=== PATIENT | male | born 1995 | race American Indian/Alaskan Native ===

== ENCOUNTER 2021-04-28 22:33 | Emergency (ER) | payer SELFPAY ==
[2021-04-28] MEDS ORDERED: SODIUM CHLORIDE 0.9% 1000 ML 1,000 ML IV ONE (23:47)
[2021-04-28] MEDS ORDERED: MORPHINE 4 MG/1 ML INJ IV ONE (23:47)
[2021-04-28] MEDS ORDERED: ONDANSETRON 4 MG/2 ML INJ IV ONE (23:47)
[2021-04-28] MEDS ORDERED: FAMOTIDINE 20 MG/2 ML INJ IV ONE (23:48)
--- NOTE | 2021-04-28 23:56 | Emergency Department Report ---
HPI <NYDIAYEHUDA - Last Filed: 04/29/21 07:25> - HPI HPI: 25-year-old -G[place] male presents to the emergency department with a complaint of generalized abdominal pain, nausea with vomiting, and some recent hematemesis. Overall this has been going on for the past 24 to 36 hours. He has a past medical history of celiac disease and insulin-dependent diabetes. He has not taken anything for symptoms prior to presentation. No recent travel or sick contacts at home. He denies any fever, dysuria, diarrhea, constipation. He says that his abdominal pain is currently 10 out of 10 in intensity. No known aggravating or alleviating factors. <STEPHANIE AMATO - Last Filed: 04/29/21 20:33> - General Chief Complaint: Abdominal Pain Time Seen by Provider: 04/28/21 23:20 ED Past Medical Hx <NYDIAYEHUDA - Last Filed: 04/29/21 07:25> - Past Medical History Hx Diabetes: Yes Additional medical history: Celiac disease <STEPHANIE AMATO - Last Filed: 04/29/21 20:33> - Medications Home Medications: Home Medications Medication Instructions Recorded Confirmed Last Taken Type Ciprofloxacin HCl 500 mg PO BID #14 04/29/21 Unknown Rx Famotidine [Pepcid] 20 mg PO BID #20 tablet 04/29/21 Unknown Rx HYDROcodone/APAP 5-325 [[place] 1 each PO Q6HR PRN #12 tablet 04/29/21 Unknown Rx 5/325] Ondansetron [Zofran Odt] 4 mg PO Q8HR PRN #15 tab.rapdis 04/29/21 Unknown Rx ED Review of Systems ROS: Stated complaint: ABD PAIN Other details as noted in HPI <NYDIAYEHUDA - Last Filed: 04/29/21 07:25> ROS: Stated complaint: ABD PAIN Other details as noted in HPI Comment: All other systems reviewed and negative Constitutional: denies: chills, fever Cardiovascular: denies: chest pain, palpitations Gastrointestinal: abdominal pain, nausea, vomiting, hematemesis. denies: diarrhea, constipation Genitourinary: denies: dysuria, discharge Musculoskeletal: denies: back pain, arthralgia Skin: denies: rash, lesions Neurological: denies: headache, weakness <STEPHANIE AMATO - Last Filed: 04/29/21 20:33> Physical Exam - Physical Exam Vital Signs: Vital Signs 04/28/21 04/29/21 22:43 01:38 Temperature 98.1 F Pulse Rate 88 Respiratory 18 22 Rate Blood Pressure 150/92 [Right] O2 Sat by Pulse 100 Oximetry <YEHUDA STAFFORD - Last Filed: 04/29/21 07:25> - Physical Exam Vital Signs: Vital Signs 04/28/21 22:43 Temperature 98.1 F Pulse Rate 88 Respiratory 18 Rate Blood Pressure 150/92 [Right] O2 Sat by Pulse 100 Oximetry Physical Exam: GENERAL: The patient appears in some mild distress secondary to pain. HENT: Normocephalic. Atraumatic. Patient has moist mucous membranes. EYES: Extraocular motions are intact. NECK: Supple. Trachea is midline. CHEST/LUNGS: Clear to auscultation. There is no respiratory distress noted. HEART/CARDIOVASCULAR: Regular. There is no tachycardia. There is no murmur. ABDOMEN: Abdomen is soft. Generalized abdominal tenderness to palpation. Patient has normal bowel sounds. There is no abdominal distention. SKIN: Skin is warm and dry. NEURO: The patient is awake, alert, and oriented. The patient is cooperative. Normal speech. MUSCULOSKELETAL: There is no tenderness or deformity. There is no limitation range of motion. <STEPHANIE AMATO - Last Filed: 04/29/21 20:33> ED Course Vital Signs 04/28/21 04/29/21 22:43 01:38 Temperature 98.1 F Pulse Rate 88 Respiratory 18 22 Rate Blood Pressure 150/92 [Right] O2 Sat by Pulse 100 Oximetry <YEHUDA STAFFORD - Last Filed: 04/29/21 07:25> Vital Signs 04/28/21 22:43 Temperature 98.1 F Pulse Rate 88 Respiratory 18 Rate Blood Pressure 150/92 [Right] O2 Sat by Pulse 100 Oximetry <STEPHANIE AMATO - Last Filed: 04/29/21 20:33> ED Medical Decision Making - Lab Data Result diagrams: 04/28/21 23:54 04/28/21 23:54 - Medical Decision Making Patient stable vital signs with recurrence of vomiting. Discharged home. <YEHUDA STAFFORD - Last Filed: 04/29/21 07:25> - Lab Data Result diagrams: 04/28/21 23:54 04/28/21 23:54 Lab Results 04/28/21 04/28/21 Range/Units 23:54 23:54 WBC 10.6 (4.5-11.0) K/mm3 RBC 3.99 (3.65-5.03) M/mm3 Hgb 12.0 (11.8-15.2) gm/dl Hct 37.1 (35.5-45.6) % MCV 93 (84-94) fl MCH 30 (28-32) pg MCHC 32 (32-34) % RDW 13.7 (13.2-15.2) % Plt Count 408 (140-440) K/mm3 Lymph % (Auto) 14.1 (13.4-35.0) % [place] % (Auto) 7.2 (0.0-7.3) % Eos % (Auto) 0.1 (0.0-4.3) % Baso % (Auto) 0.2 (0.0-1.8) % Lymph # (Auto) 1.5 (1.2-5.4) K/mm3 [place] # (Auto) 0.8 (0.0-0.8) K/mm3 Eos # (Auto) 0.0 (0.0-0.4) K/mm3 Baso # (Auto) 0.0 (0.0-0.1) K/mm3 Seg Neutrophils % 78.4 H (40.0-70.0) % Seg Neutrophils # 8.3 H (1.8-7.7) K/mm3 Sodium 145 (137-145) mmol/L Potassium 4.4 (3.6-5.0) mmol/L Chloride 104.8 (98-107) mmol/L Carbon Dioxide 24 (22-30) mmol/L Anion Gap 21 mmol/L BUN 21 H (9-20) mg/dL Creatinine 1.1 (0.8-1.3) mg/dL Estimated GFR > 60 ml/min BUN/Creatinine Ratio 19 % Glucose 180 H (75-100) mg/dL Calcium 9.6 (8.4-10.2) mg/dL Total Bilirubin 0.20 (0.1-1.2) mg/dL Direct Bilirubin < 0.2 (0-0.2) mg/dL Indirect Bilirubin 0.0 mg/dL AST 36 (5-40) units/L ALT 30 (7-56) units/L Alkaline Phosphatase 122 (35-129) units/L Total Protein 8.1 (6.3-8.2) g/dL Albumin 4.7 (3.9-5) g/dL Albumin/Globulin Ratio 1.4 % Lipase 23 (13-60) units/L - Radiology Data Radiology results: report reviewed CT abdomen pelvis w con INDICATION / CLINICAL INFORMATION: "Generalized" abdominal pain with nausea and vomiting. TECHNIQUE: Axial CT imaging of abdomen and pelvis was obtained with 100 mL Omnipaque 300 IV contrast. Coronal and sagittal reformatted imaging obtained and reviewed. All CT scans at this location are performed using CT dose reduction for ALARA by means of automated exposure control. COMPARISON: None available. FINDINGS: CT abdomen with contrast demonstrates grossly normal appearance of the liver, spleen, pancreas, kidneys, and adrenal glands. Gallbladder is present. No biliary dilatation. There is prominent inflammatory change involving the majority of the colon, with sparing of the sigmoid and descending colon. The appearance is consistent with colitis. Small bowel is grossly unremarkable. Normal appendix is present in the right lower quadrant. There are a few small pulmonary opacities within the lower lobes bilaterally. These are nonspecific but certainly could be due to viral pneumonia and correlation with Covid status is recommended. No pleural effusion. No acute osseous abnormality is present. IMPRESSION: 1. Findings consistent with colitis involving the ascending colon and transverse colon. 2. Incidental finding of a few scattered pulmonary opacities within both lung bases. This could represent viral pneumonia and correlation with Covid status is recommended. - Medical Decision Making This patient presents to the emergency department with abdominal pain, nausea and vomiting. The patient is actively vomiting and there is some mild hematemesis seen most likely secondary to a [place]Han tear. He has generalized abdominal tenderness to palpation but the abdomen is soft and nondistended. Labs have been mostly unremarkable including CBC, metabolic panel, lipase. An IV was placed and the patient was given IV fluid resuscitation, IV analgesia and a dose of an antiemetic. CT shows that the patient has colitis. He has been given a dose of IV antibioti cs. Attempted an oral challenge but the patient subsequently began having increased abdominal pain and increased nausea with vomiting. I have ordered for the patient to have another liter of IV fluid, a dose of Reglan and a second dose of analgesia. This patient will be signed out to my colleague to reevaluate and assist with disposition. <STEPHANIE AMATO - Last Filed: 04/29/21 20:33> Critical care attestation.: If time is entered above; I have spent that time in minutes in the direct care of this critically ill patient, excluding procedure time. <YEHUDA STAFFORD - Last Filed: 04/29/21 07:25> Critical Care Time: No Critical care attestation.: If time is entered above; I have spent that time in minutes in the direct care of this critically ill patient, excluding procedure time. <STEPHANIE AMATO - Last Filed: 04/29/21 20:33> ED Disposition Is pt being admited?: No Does the pt Need Aspirin: No <YEHUDA STAFFORD - Last Filed: 04/29/21 07:25> Is pt being admited?: No Time of Disposition: 04:18 <STEPHANIE AMATO - Last Filed: 04/29/21 20:33> Clinical Impression: Colitis, Abdominal pain, Nausea & vomiting, Hematemesis Disposition: 01 HOME / SELF CARE / HOMELESS Condition: Stable Instructions: Hematemesis, Abdominal Pain, Adult, Nausea and Vomiting, Adult, Colitis Additional Instructions: Please follow-up with a primary care physician in the next few days. I am giving you a referral for [facility] to follow-up regarding your abdominal pain and colitis. Take all medications as prescribed. You have been prescribed a medication that is sedating and therefore should not be taken prior to driving, working, and responsible for children and in no way should be mixed with alcohol of any quantity. Return to the emergency department with any worsening of your symptoms, new or concerning symptoms not addressed during this current emergency department visit, or with any acute distress. Prescriptions: Ciprofloxacin HCl 500 mg PO BID #14 HYDROcodone/APAP 5-325 [[place] 5/325] 1 each PO Q6HR PRN #12 tablet PRN Reason: Pain Famotidine [Pepcid] 20 mg PO BID #20 tablet Ondansetron [Zofran Odt] 4 mg PO Q8HR PRN #15 tab.rapdis PRN Reason: Nausea Referrals: PRIMARY CARE,MD [Primary Care Provider] - 3-5 Days [facility] [Provider Group] - 3-5 Days
[2021-04-29 00:27] LABS: Alanine Aminotransferase 30 units/L (7-56); Albumin 4.7 g/dL (3.9-5); BUN/Creatinine Ratio 19; Blood Urea Nitrogen 21 mg/dL (9-20); Calcium 9.6 mg/dL (8.4-10.2); Hemolysis Index 4
[2021-04-29 00:41] LABS: Bilirubin,Direct < 0.2 mg/dL (0-0.2)
[2021-04-29 00:46] LABS: Basophils % (Auto) 0.2 % (0.0-1.8); Eosinophils % (Auto) 0.1 % (0.0-4.3); Hematocrit 37.1 % (35.5-45.6); Lymphocytes # (Auto) 1.5 K/mm3 (1.2-5.4); Lymphocytes % (Auto) 14.1 % (13.4-35.0); Mean Corpuscular HGB Conc 32 % (32-34); Mean Corpuscular Volume 93 fl (84-94); Monocytes # (Auto) 0.8 K/mm3 (0.0-0.8); Monocytes % (Auto) 7.2 % (0.0-7.3); Platelet Count 408 K/mm3 (140-440); Red Blood Count 3.99 M/mm3 (3.65-5.03); Red Cell Distribution Width 13.7 % (13.2-15.2)
--- NOTE | 2021-04-29 01:36 | Cat Scan Report ---
CT abdomen pelvis w con INDICATION / CLINICAL INFORMATION: "Generalized" abdominal pain with nausea and vomiting. TECHNIQUE: Axial CT imaging of abdomen and pelvis was obtained with 100 mL Omnipaque 300 IV contrast. Coronal an d sagittal reformatted imaging obtained and reviewed. All CT scans at this location are performed us ing CT dose reduction for ALARA by means of automated exposure control. COMPARISON: None available. FINDINGS: CT abdomen with contrast demonstrates grossly normal appearance of the liver, spleen, pancreas, kidne ys, and adrenal glands. Gallbladder is present. No biliary dilatation. There is prominent inflammatory change involving the majority of the colon, with sparing of the sigmo id and descending colon. The appearance is consistent with colitis. Small bowel is grossly unremarkab le. Normal appendix is present in the right lower quadrant. There are a few small pulmonary opacities within the lower lobes bilaterally. These are nonspecific b ut certainly could be due to viral pneumonia and correlation with Covid status is recommended. No ple ural effusion. No acute osseous abnormality is present. IMPRESSION: 1. Findings consistent with colitis involving the ascending colon and transverse colon. 2. Incidental finding of a few scattered pulmonary opacities within both lung bases. This could repre sent viral pneumonia and correlation with Covid status is recommended. Signer Name: Kim Kan MD Signed: 04/29/2021 1:32 AM Workstation Name: [id number]
[2021-04-29] MEDS ORDERED: PIPERACIL/TAZOBACTA 4.5/NS 100 4.5 GM/100 ML VIAL IV ONE (01:37)
[2021-04-29] MEDS ORDERED: METOCLOPRAMIDE 10 MG/2 ML INJ IV ONE (04:28)
[2021-04-29] MEDS ORDERED: HYDROmorphone 1 MG/1 ML INJ IV ONE (05:30)
[2021-04-29] MEDS ORDERED: SODIUM CHLORIDE 0.9% 1000 ML 1,000 ML IV ONE (05:31)
[2021-04-29 08:11] VITALS: BP 133/85
== END 2021-04-29 08:10 | disposition home or self-care (01) ==
LOC: ED 22:33
DX: K52.9 Noninfective gastroenteritis and colitis, unspecified (principal); R10.9 Unspecified abdominal pain; K92.0 Hematemesis
CPT/HCPCS: 36415; 74177; 80048; 80076; 83690; 85025; 96365; 96375; 99284; J1170; J2270; J2405; J2543; J3490; J7030; Q9967; Q0162

== ENCOUNTER 2021-10-19 14:16 | Inpatient (IN) | payer SELFPAY ==
[2021-10-19 20:08] LABS: Basophils % (Auto) 0.3 % (0.0-1.8); Eosinophils % (Auto) 0.1 % (0.0-4.3); Hematocrit 41.4 % (35.5-45.6); Hemoglobin 13.6 gm/dl (11.8-15.2); Lymphocytes # (Auto) 2.7 K/mm3 (1.2-5.4); Lymphocytes % (Auto) 21.6 % (13.4-35.0); Mean Corpuscular HGB Conc 33 % (32-34); Mean Corpuscular Volume 93 fl (84-94); Monocytes # (Auto) 0.9 K/mm3 (0.0-0.8); Monocytes % (Auto) 6.9 % (0.0-7.3); Platelet Count 390 K/mm3 (140-440); Red Blood Count 4.47 M/mm3 (3.65-5.03); Red Cell Distribution Width 13.5 % (13.2-15.2)
[2021-10-19 20:22] LABS: Albumin 5.4 g/dL (3.9-5); Calcium 9.6 mg/dL (8.4-10.2)
[2021-10-19] MEDS ORDERED: SODIUM CHLORIDE 0.9% 1000 ML 1,000 ML IV ONE ×2 (20:35→22:29)
[2021-10-19] MEDS ORDERED: INSULIN REGULAR, HUMAN 100 UNITS/1 ML IV ONE (20:35)
[2021-10-19] MEDS ORDERED: MORPHINE 4 MG/1 ML INJ IV STA (20:36)
[2021-10-19] MEDS ORDERED: ONDANSETRON 4 MG/2 ML INJ IV STA (20:36)
--- NOTE | 2021-10-19 20:41 | Emergency Department Report ---
ED Abdominal Pain HPI - General Chief Complaint: Abdominal Pain Stated Complaint: ABD PAIN Time Seen by Provider: 10/19/21 20:22 Source: patient, EMS Mode of arrival: Stretcher Limitations: No Limitations - History of Present Illness Initial Comments: 26-year-old F Lebanese male with past medical history of insulin-dependent diabetes [facility] emerged department complaining of left 1 week history of mid gastric Abdominal pain associated nausea vomiting and diarrhea with a strong suspicion for food poisoning. Reports no hemoptysis no hematemesis hematoc hezia, no fever, chills, sweats. No chest pain or palpitations. The symptoms are worsening with with food. MD Complaint: abdominal pain -: Gradual, week(s) (1) Location: diffuse Radiation: none, RUQ, RLQ, epigastric, suprapubic Migration to: no migration Severity: moderate Quality: aching, dull Consistency: constant Improves With: nothing (9) - Related Data Previous Rx's Medication Instructions Recorded Last Taken Type Ciprofloxacin HCl 500 mg PO BID #14 04/29/21 Unknown Rx Famotidine [Pepcid] 20 mg PO BID #20 tablet 04/29/21 Unknown Rx HYDROcodone/APAP 5-325 [[place] 1 each PO Q6HR PRN #12 tablet 04/29/21 Unknown Rx 5/325] Ondansetron [Zofran Odt] 4 mg PO Q8HR PRN #15 tab.rapdis 04/29/21 Unknown Rx Allergies Allergy/AdvReac Type Severity Reaction Status Date / Time No Known Allergies Allergy Verified 10/19/21 14:23 ED Review of Systems ROS: Stated complaint: ABD PAIN Other details as noted in HPI Comment: All other systems reviewed and negative ED Past Medical Hx - Past Medical History Hx Diabetes: Yes Additional medical history: Celiac disease - Medications Home Medications: Home Medications Medication Instructions Recorded Confirmed Last Taken Type Ciprofloxacin HCl 500 mg PO BID #14 04/29/21 Unknown Rx Famotidine [Pepcid] 20 mg PO BID #20 tablet 04/29/21 Unknown Rx HYDROcodone/APAP 5-325 [[place] 1 each PO Q6HR PRN #12 tablet 04/29/21 Unknown Rx 5/325] Ondansetron [Zofran Odt] 4 mg PO Q8HR PRN #15 tab.rapdis 04/29/21 Unknown Rx ED Physical Exam - General Limitations: No Limitations General appearance: alert, in no apparent distress - Head Head exam: Present: atraumatic, normocephalic - Eye Eye exam: Present: normal appearance, PERRL, EOMI Pupils: Present: normal accommodation - ENT ENT exam: Present: normal exam, mucous membranes moist - Neck Neck exam: Present: normal inspection, full ROM - Respiratory Respiratory exam: Present: normal lung sounds bilaterally. Absent: respiratory distress, wheezes, rales, chest wall tenderness, accessory muscle use - Cardiovascular Cardiovascular Exam: Present: regular rate, normal rhythm. Absent: systolic murmur, diastolic murmur, rubs, gallop - GI/Abdominal GI/Abdominal exam: Present: soft, tenderness, normal bowel sounds. Absent: distended, guarding, rebound - Rectal Rectal exam: Present: deferred - Extremities Exam Extremities exam: Present: normal inspection, normal capillary refill - Back Exam Back exam: Present: normal inspection. Absent: CVA tenderness (R), CVA tenderness (L) - Neurological Exam Neurological exam: Present: alert, oriented X3 - Psychiatric Psychiatric exam: Present: normal affect, normal mood - Skin Skin exam: Present: warm, dry, intact, normal color. Absent: rash ED Course Vital Signs 10/19/21 14:22 Temperature 97.6 F Pulse Rate 100 H Respiratory 18 Rate Blood Pressure 130/100 [Left] O2 Sat by Pulse 100 Oximetry ED Medical Decision Making - Lab Data Result diagrams: 10/19/21 19:40 10/20/21 00:27 - Radiology Data Radiology results: report reviewed [facility] [address] [place] [address] Cat Scan Report Signed Patient: HCAI ALTAMIRANO MR#: [id number] : 1995 Acct:[id number] Age/Sex: 26 / M ADM Date: 10/19/21 Loc: ED Attending Dr: Ordering Physician: ALEXIA DORAN Date of Service: 10/19/21 Procedure(s): CT abdomen pelvis wo con Accession Number(s): [id number] cc: ALEXIA DORAN CT ABDOMEN AND PELVIS WITHOUT CONTRAST INDICATION / CLINICAL INFORMATION: Pt complains of Mid-Epigastric abdominal pain. TECHNIQUE: Axial CT images were obtained through the abdomen and pelvis without IV contrast. All CT scans at this location are performed using CT dose reduction for ALARA by means of automated exposure control. COMPARISON: 04/29/2021 FINDINGS: LOWER CHEST: No significant abnormality LIVER: No significant abnormality GALLBLADDER/BILIARY TREE: No significant abnormality PANCREAS: No significant abnormality SPLEEN: No significant abnormality ADRENALS: No significant abnormality RIGHT KIDNEY / URETER: No significant abnormality LEFT KIDNEY / URETER: No significant abnormality URINARY BLADDER: No significant abnormality REPRODUCTIVE ORGANS: No significant abnormality STOMACH / BOWEL: Stomach is unremarkable. Small bowel is normal in caliber. Large amount of stool throughout the colon. No evidence of localized bowel inflammation or obstruction. The appendix is normal in caliber. LYMPH NODES: No significant adenopathy. VASCULATURE: Abdominal aorta is normal in caliber. There are prominent calcifications in the SMA, advanced for age. OTHER: No free air, free fluid, or focal fluid collection is identified. SKELETAL SYSTEM: No acute osseous findings. IMPRESSION: 1. No acute findings. 2. Large amount of stool throughout the colon, compatible constipation. No evidence of localized bowel inflammation or obstruction. 3. Other incidental findings as above. Signer Name: Ida Hyde MD Signed: 10/19/2021 9:58 PM Workstation Name: [id number] Transcribed By: NEFTALI Dictated By: IDA HYDE MD Electronically Authenticated By: IDA HYDE MD Signed Date/Time: 10/19/212157 DD/ 53 TD/TT: Print Cancel - Medical Decision Making 26-year-old male insulin-dependent diabetes and 1 week history of nausea and vomiting was found to have elevated blood glucose in excess of 400 for which she received 10 units insulin and 2 L of fluid this these findings were associated with renal insufficiency which may have been prerenal in nature due to nausea vomiting and diarrhea. After he received a fluid bolus and insulin blood sugar did come down to 179 and his creatinine improved from 2.7-2.0 however head neck normalized. His BUN also slightly improved but remained in the 70s. Discussed the case with hospitalist Dr. Harry who at this pointmild response to the fluids to treat prerenal renal insufficiency plan is to admit for further treatment and evaluation of this possible transient issue Critical care attestation.: If time is entered above; I have spent that time in minutes in the direct care of this critically ill patient, excluding procedure time. ED Disposition Clinical Impression: Acute renal insufficiency, Hyperglycemia Disposition: 01 HOME / SELF CARE / HOMELESS Is pt being admited?: Yes Does the pt Need Aspirin: No Condition: Stable
--- NOTE | 2021-10-19 22:02 | Cat Scan Report ---
CT ABDOMEN AND PELVIS WITHOUT CONTRAST INDICATION / CLINICAL INFORMATION: Pt complains of Mid-Epigastric abdominal pain. TECHNIQUE: Axial CT images were obtained through the abdomen and pelvis without IV contrast. All CT scans at this location are performed using CT dose reduction for ALARA by means of automated exposure control. COMPARISON: 04/29/2021 FINDINGS: LOWER CHEST: No significant abnormality LIVER: No significant abnormality GALLBLADDER/BILIARY TREE: No significant abnormality PANCREAS: No significant abnormality SPLEEN: No significant abnormality ADRENALS: No significant abnormality RIGHT KIDNEY / URETER: No significant abnormality LEFT KIDNEY / URETER: No significant abnormality URINARY BLADDER: No significant abnormality REPRODUCTIVE ORGANS: No significant abnormality STOMACH / BOWEL: Stomach is unremarkable. Small bowel is normal in caliber. Large amount of stool thr oughout the colon. No evidence of localized bowel inflammation or obstruction. The appendix is normal in caliber. LYMPH NODES: No significant adenopathy. VASCULATURE: Abdominal aorta is normal in caliber. There are prominent calcifications in the SMA, adv anced for age. OTHER: No free air, free fluid, or focal fluid collection is identified. SKELETAL SYSTEM: No acute osseous findings. IMPRESSION: 1. No acute findings. 2. Large amount of stool throughout the colon, compatible constipation. No evidence of localized emily l inflammation or obstruction. 3. Other incidental findings as above. Signer Name: Joe Hyde MD Signed: 10/19/2021 9:58 PM Workstation Name: [id number]
[2021-10-20 00:58] LABS: Calcium 9.3 mg/dL (8.4-10.2)
[2021-10-20] MEDS ORDERED: DEXTROSE 50% IN WATER (25GM) 50 ML SYRINGE IV PRN (01:34)
[2021-10-20] MEDS ORDERED: MORPHINE 4 MG/1 ML INJ IV PRN (01:34)
[2021-10-20] MEDS ORDERED: ACETAMINOPHEN 325 MG TAB PO PRN (01:34)
[2021-10-20] MEDS ORDERED: ALBUTEROL 2.5 MG/3 ML NEBU IH PRN (01:34)
--- NOTE | 2021-10-20 01:42 | History and Physical Report ---
History of Present Illness Date of examination: 10/20/21 Date of admission: 10/20/21 Chief complaint: Abdominal pain History of present illness: 26 years old male with past medical history of diabetes and celiac disease was brought to the emergency room because of abdominal pain for last 1 days. Patient also complained of nausea vomiting. In the emergency room CT scan of the abdomen shows no acute finding. Large amount of stool throughout the colon, compatible with constipation. But patient sodium is 127, BUN is 79, creatinine 2.7 and blood glucose is 409, bicarb is 23, anion gap 29. She will going to admit the patient we will put the patient on IV fluid insulin sliding scale we will consult nephrology for evaluation Past History Past Medical History: diabetes, other Past Surgical History: No surgical history (Celiac disease) Social history: no significant social history Family history: diabetes Medications and Allergies Allergies Allergy/AdvReac Type Severity Reaction Status Date / Time No Known Allergies Allergy Verified 10/19/21 14:23 Home Medications Medication Instructions Recorded Confirmed Last Taken Type Ciprofloxacin HCl 500 mg PO BID #14 04/29/21 Unknown Rx Famotidine [Pepcid] 20 mg PO BID #20 tablet 04/29/21 Unknown Rx HYDROcodone/APAP 5-325 [[place] 1 each PO Q6HR PRN #12 tablet 04/29/21 Unknown Rx 5/325] Ondansetron [Zofran Odt] 4 mg PO Q8HR PRN #15 tab.rapdis 04/29/21 Unknown Rx Active Meds: Active Medications Acetaminophen (Acetaminophen 325 Mg Tab) 650 mg PO Q4H PRN PRN Reason: Pain MILD(1-3)/Fever >100.5/SANCHES Ondansetron HCl (Ondansetron 4 Mg/2 Ml Inj) 4 mg IV Q8H PRN PRN Reason: Nausea And Vomiting Review of Systems All systems: negative Gastrointestinal: abdominal pain, nausea, vomiting Exam - Constitutional Vitals: Temp Pulse Resp BP Pulse Ox 97.6 F 100 H 18 130/100 100 10/19/21 14:22 10/19/21 14:22 10/19/21 14:22 10/19/21 14:22 10/19/21 14:22 General appearance: Present: no acute distress, well-nourished - EENT Eyes: Present: PERRL ENT: hearing intact, clear oral mucosa - Neck Neck: Present: supple, normal ROM - Respiratory Respiratory effort: normal Respiratory: bilateral: CTA - Cardiovascular Heart Sounds: Present: S1 & S2. Absent: rub, click - Extremities Extremities: pulses symmetrical, No edema Peripheral Pulses: within normal limits - Abdominal General gastrointestinal: Present: soft, non-tender, non-distended, normal bowel sounds Male genitourinary: Present: normal - Integumentary Integumentary: Present: clear, warm, dry - Musculoskeletal Musculoskeletal: gait normal, strength equal bilaterally - Psychiatric Psychiatric: appropriate mood/affect, intact judgment & insight - Neurologic Neurologic: CNII-XII intact, moves all extremities Results - Labs CBC & Chem 7: 10/19/21 19:40 10/20/21 00:27 Labs: Laboratory Last Values WBC 12.7 K/mm3 (4.5-11.0) H 10/19/21 19:40 RBC 4.47 M/mm3 (3.65-5.03) 10/19/21 19:40 Hgb 13.6 gm/dl (11.8-15.2) 10/19/21 19:40 Hct 41.4 % (35.5-45.6) 10/19/21 19:40 MCV 93 fl (84-94) 10/19/21 19:40 MCH 30 pg (28-32) 10/19/21 19:40 MCHC 33 % (32-34) 10/19/21 19:40 RDW 13.5 % (13.2-15.2) 10/19/21 19:40 Plt Count 390 K/mm3 (140-440) 10/19/21 19:40 Lymph % (Auto) 21.6 % (13.4-35.0) 10/19/21 19:40 [place] % (Auto) 6.9 % (0.0-7.3) 10/19/21 19:40 Eos % (Auto) 0.1 % (0.0-4.3) 10/19/21 19:40 Baso % (Auto) 0.3 % (0.0-1.8) 10/19/21 19:40 Lymph # (Auto) 2.7 K/mm3 (1.2-5.4) 10/19/21 19:40 [place] # (Auto) 0.9 K/mm3 (0.0-0.8) H 10/19/21 19:40 Eos # (Auto) 0.0 K/mm3 (0.0-0.4) 10/19/21 19:40 Baso # (Auto) 0.0 K/mm3 (0.0-0.1) 10/19/21 19:40 Seg Neutrophils % 71.1 % (40.0-70.0) H 10/19/21 19:40 Seg Neutrophils # 9.0 K/mm3 (1.8-7.7) H 10/19/21 19:40 Sodium 132 mmol/L (137-145) L 10/20/21 00:27 Potassium 4.7 mmol/L (3.6-5.0) 10/20/21 00:27 Chloride 89.4 mmol/L (98-107) L 10/20/21 00:27 Carbon Dioxide 28 mmol/L (22-30) 10/20/21 00:27 Anion Gap 19 mmol/L 10/20/21 00:27 BUN 74 mg/dL (9-20) H 10/20/21 00:27 Creatinine 2.0 mg/dL (0.8-1.3) H 10/20/21 00:27 Estimated GFR 48 ml/min 10/20/21 00:27 BUN/Creatinine Ratio 37 % 10/20/21 00:27 Glucose 172 mg/dL (75-100) H 10/20/21 00:27 Calcium 9.3 mg/dL (8.4-10.2) 10/20/21 00:27 Total Bilirubin 0.40 mg/dL (0.1-1.2) 10/19/21 19:40 AST 99 units/L (5-40) H 10/19/21 19:40 ALT 57 units/L (7-56) H 10/19/21 19:40 Alkaline Phosphatase 113 units/L (35-129) 10/19/21 19:40 Total Protein 8.4 g/dL (6.3-8.2) H 10/19/21 19:40 Albumin 5.4 g/dL (3.9-5) H 10/19/21 19:40 Albumin/Globulin Ratio 1.8 % 10/19/21 19:40 Lipase 29 units/L (13-60) 10/19/21 19:40 - Imaging and Cardiology CT scan - abdomen: report reviewed Assessment and Plan VTE prophylaxis?: Mechanical Plan of care discussed with patient/family: Yes - Patient Problems (1) Hyperglycemia due to type 2 diabetes mellitus Current Visit: Yes Status: Acute Plan to address problem: Admit the patient to the medical floor telemetry. Humalog sliding scale every 6 hours with high dose insulin coverage. Diabetic education. Half-normal saline at the rate of 150 cc/h. Recheck BMP in the morning (2) Abdominal pain Current Visit: Yes Status: Acute Plan to address problem: NPO. Half-normal saline at the rate of 150 cc/h. Pepcid 20 mg IV every 12 hours. Morphine 2 mg IV every 4 hours as needed (3) Nausea & vomiting Current Visit: Yes Status: Acute Plan to address problem: NPO. Half-normal saline at the rate of 150 cc/h. Pepcid 20 mg IV every 12 hours. Zofran 4 mg IV every 6 hours as needed (4) LUZ (acute kidney injury) Current Visit: Yes Status: Acute Plan to address problem: Half-normal saline at the rate of 150 cc/h. Avoid nephrotoxic drug. Renally dose medication. Nephrology evaluation. Recheck BMP in the morning (5) Celiac disease Current Visit: Yes Status: Acute Plan to address problem: Stable. We continue the home medication (6) Constipation Current Visit: Yes Status: Acute Plan to address problem: MiraLAX 17 g p.o. daily. We will continue the home medication (7) DVT prophylaxis Current Visit: Yes Status: Acute Plan to address problem: SCD for DVT prophylaxis. Pepcid 20 mg IV every 12 hours for GI prophylaxis. Patient is a full code
[2021-10-20] MEDS ORDERED: SODIUM CHLORIDE 0.45% 1000 ML 1,000 ML IV SCH (02:00)
[2021-10-20] MEDS ORDERED: METOCLOPRAMIDE 10 MG/2 ML INJ IV STA (04:34)
[2021-10-20] MEDS ORDERED: diphenhydrAMINE 50 MG/ML VIAL IV STA (04:34)
[2021-10-20] MEDS: IPRATROPIUM/ALBUTEROL SULFATE 3 ML AMPUL.NEB IH SCH ×3 (05:50→15:04)
[2021-10-20] MEDS ORDERED: SODIUM CHLORIDE 0.9% 1000 ML 1,000 ML IV ONE (09:00)
--- NOTE | 2021-10-20 11:48 | Consultation ---
History of Present Illness - Reason for Consult Consult date: 10/20/21 acute renal failure, hyponatremia - History of Present Illness 26 years old male with past medical history of diabetes and celiac disease was brought to the emergency room because of abdominal pain for last 1 days. Patient also complained of nausea vomiting. In the emergency room CT scan of the abdomen shows no acute finding. Large amount of stool throughout the colon, compatible with constipation. But patient sodium is 127, BUN is 79, creatinine 2.7 and blood glucose is 409, bicarb is 23, anion gap 29. She will going to admit the patient we will put the patient on IV fluid insulin sliding scale we will consult nephrology for evaluation Past History Past Medical History: diabetes, other Past Surgical History: No surgical history (Celiac disease) Social history: no significant social history Family history: diabetes Medications and Allergies Allergies Allergy/AdvReac Type Severity Reaction Status Date / Time No Known Allergies Allergy Verified 10/19/21 14:23 Home Medications Medication Instructions Recorded Confirmed Last Taken Type Ciprofloxacin HCl 500 mg PO BID #14 04/29/21 Unknown Rx Famotidine [Pepcid] 20 mg PO BID #20 tablet 04/29/21 Unknown Rx HYDROcodone/APAP 5-325 [[place] 1 each PO Q6HR PRN #12 tablet 04/29/21 Unknown Rx 5/325] Ondansetron [Zofran Odt] 4 mg PO Q8HR PRN #15 tab.rapdis 04/29/21 Unknown Rx Active Meds: Active Medications Acetaminophen (Acetaminophen 325 Mg Tab) 650 mg PO Q4H PRN PRN Reason: Pain MILD(1-3)/Fever >100.5/SANCHES Ondansetron HCl (Ondansetron 4 Mg/2 Ml Inj) 4 mg IV Q8H PRN PRN Reason: Nausea And Vomiting Review of Systems All systems: negative Gastrointestinal: abdominal pain, nausea, vomiting Past History Past Medical History: diabetes, other Past Surgical History: No surgical history (Celiac disease) Social history: no significant social history Family history: diabetes Medications and Allergies Allergies Allergy/AdvReac Type Severity Reaction Status Date / Time No Known Allergies Allergy Verified 10/19/21 14:23 Home Medications Medication Instructions Recorded Confirmed Last Taken Type Ciprofloxacin HCl 500 mg PO BID #14 04/29/21 Unknown Rx Famotidine [Pepcid] 20 mg PO BID #20 tablet 04/29/21 Unknown Rx HYDROcodone/APAP 5-325 [[place] 1 each PO Q6HR PRN #12 tablet 04/29/21 Unknown Rx 5/325] Ondansetron [Zofran Odt] 4 mg PO Q8HR PRN #15 tab.rapdis 04/29/21 Unknown Rx Active Meds: Active Medications Acetaminophen (Acetaminophen 325 Mg Tab) 650 mg PO Q4H PRN PRN Reason: Pain MILD(1-3)/Fever >100.5/SANCHES Albuterol (Albuterol 2.5 Mg/3 Ml Nebu) 2.5 mg IH Q3HRT PRN PRN Reason: Shortness Of Breath Albuterol/Ipratropium (Ipratropium/Albuterol Sulfate 3 Ml Ampul.Neb) 1 ampul IH Q6HRT JOSE MARTIN Last Admin: 10/20/21 09:58 Dose: Not Given Dextrose (Dextrose 50% In Water (25gm) 50 Ml Syringe) 0 ml IV Q30MIN PRN; Protocol PRN Reason: Hypoglycemia Famotidine (Famotidine 20 Mg/2 Ml Inj) 20 mg IV BID JOSE MARTIN Insulin Human Lispro (Insulin Lispro 100 Unit/Ml) 0 unit SUB-Q Q6HR JOSE MARTIN; Protocol Morphine Sulfate (Morphine 2 Mg/1 Ml Inj) 2 mg IV Q4H PRN PRN Reason: Pain, Moderate (4-6) Morphine Sulfate (Morphine 4 Mg/1 Ml Inj) 4 mg IV Q4H PRN PRN Reason: Pain , Severe (7-10) Ondansetron HCl (Ondansetron 4 Mg/2 Ml Inj) 4 mg IV Q8H PRN PRN Reason: Nausea And Vomiting Polyethylene Glycol (Polyethylene Glycol 3350 17 Gm Powder) 17 gm PO QDAY PRN PRN Reason: Constipation Sodium Chloride (Sodium Chloride 0.9% 10 Ml Flush Syringe) 10 ml IV BID JOSE MARTIN Sodium Chloride (Sodium Chloride 0.9% 10 Ml Flush Syringe) 10 ml IV PRN PRN PRN Reason: LINE FLUSH Exam - Vital Signs Vital signs: Vital Signs Temp Pulse Resp BP Pulse Ox 97.6 F 100 H 18 130/100 100 10/19/21 14:22 10/19/21 14:22 10/19/21 14:22 10/19/21 14:22 10/19/21 14:22 - Physical Exam Narrative exam: General appearance: Present: no acute distress, well-nourished - EENT Eyes: Present: PERRL ENT: hearing intact, clear oral mucosa - Neck Neck: Present: supple, normal ROM - Respiratory Respiratory effort: normal Respiratory: bilateral: CTA - Cardiovascular Heart Sounds: Present: S1 & S2. Absent: rub, click - Extremities Extremities: pulses symmetrical, No edema Peripheral Pulses: within normal limits - Abdominal General gastrointestinal: Present: soft, non-tender, non-distended, normal bowel sounds Male genitourinary: Present: normal - Integumentary Integumentary: Present: clear, warm, dry - Musculoskeletal Musculoskeletal: gait normal, strength equal bilaterally - Psychiatric Psychiatric: appropriate mood/affect, intact judgment & insight - Neurologic Neurologic: CNII-XII intact, moves all extremities Results - Labs Results - Lab Results 10/19/21 19:40 10/20/21 00:27 Most recent lab results Calcium 9.3 mg/dL (8.4-10.2) 10/20/21 00:27 Assessment and Plan Impression: * tim * volume depletion * abdominal pain * celiac disease Plan: * ivfs and daily lytes * tim partially due to volume depletion * Na improving, continue ivfs * adv diet as tolerated * no indication for [employer] * strict i/is * avoid nephrotoxins
[2021-10-20] MEDS: INSULIN LISPRO 100 UNIT/ML SUB-Q SCH ×3 (13:16→18:30)
[2021-10-20] MEDS: FAMOTIDINE 20 MG/2 ML INJ IV SCH ×2 (13:20→22:13)
--- NOTE | 2021-10-20 14:38 | Progress Note ---
Assessment and Plan Assessment and plan: History of present illness: 26 years old male with past medical history of diabetes and celiac disease was brought to the emergency room because of abdominal pain for last 1 days. Patient also complained of nausea vomiting. In the emergency room CT scan of the abdomen shows no acute finding. Large amount of stool throughout the colon, compatible with constipation. But patient sodium is 127, BUN is 79, creatinine 2.7 and blood glucose is 409, bicarb is 23, anion gap 29. She will going to admit the patient we will put the patient on IV fluid insulin sliding scale we will consult nephrology for evaluation Hospital Course: 10/20: Resumed home insulin regimen. Added sucralfate for gastroparesis symptomlogy. Continue laxatives until BM achieved. Trend both renal and hepatic function. Assessment and Plan: #HHNK #Type 1 Diabetes with Hyperglycemia #Gastroparesis - type 1 diabetic. hyperglycemic on admission BG - no UA vbg ph ordered on admission. Ordered - initially on IV insulin, now on SSI q6hr. - hemoglobin A1c: 9.9 - home regimen: basaglar 16 unit qAM, 12 units qPM (reordered) - current regimen: Moderate SSI - blood glucose goal 140-180 while inpatient - continue to monitor -sucralfate for gastroparesis. #LUZ due to vasomotor nephropathy - Cr: 2.7, downtrending to Cr: 2.0 - IVF rehydration - trend on serial bmp - nephrology consultation #abdominal pain #Constipation/fecal impaction -etiology constipation in the setting of gastroparesis. - CT scan of the abdomen shows no acute finding. Large amount of stool throughout the colon, compatible with constipation. - clear liquid diet - miralax/senna until BM achieved #Celiac disease - noted, avoid gluten #Transaminitis - AST: 99, ALT: 57 - unclear etiology - trend on hepatic panel. #Advance care planning Disease education conducted, care plan discussed, diagnoses discussed, prognosis discussed, patient is full code, patient acknowledges understanding and agree with care plan, +30 minutes. #Coordination of CARE time: 30 minutes. Total visit time equals 30 or more min utes with greater than 50% spent [id number] on coordination of care and counseling. Dispo: admit to med/surg. Discharge likely in next 24hr pending symptomatic improvement. History Interval history: In severe abdominal pain this AM. Patient is a type I diabetic. Has been experiencing symptoms for approx 1 week. N/V. States he is compliant with insulin. Takes 16 U basaglar qAM and 12 U q PM. Admits to hx of gastroparesis. Does not take medications for thiis. Hospitalist Physical - Physical exam Narrative exam: Physical Exam: VITAL SIGNS: Reviewed. GENERAL: The patient appears normally developed, Vital signs as documented. mild distress HEAD: No signs of head trauma. EYES: Pupils are equal. Extraocular motions intact. EARS: Hearing grossly intact. MOUTH: Oropharynx is normal. NECK: No adenopathy, no JVD. CHEST: Chest with clear breath sounds bilaterally. No wheezes, rales, or rhonchi. CARDIAC: Regular rate and rhythm. S1 and S2, without murmurs, gallops, or rubs. VASCULAR: No Edema. Peripheral pulses normal and equal in all extremities. ABDOMEN: grossly tender. No rebound or guarding, and no masses palpated. Bowel Sounds normal. MUSCULOSKELETAL: Good range of motion of all major joints. Extremities without clubbing, cyanosis or edema. NEUROLOGIC EXAM: Alert and oriented x 4. no focal sensory or strength deficits. PSYCHIATRIC: Mood normal. SKIN: detail exam as documented in skin assessment - Constitutional Vitals: Temp Pulse Resp BP Pulse Ox 98.7 F 74 18 147/99 98 10/20/21 10:47 10/20/21 10:47 10/20/21 11:47 10/20/21 10:47 10/20/21 11:47 General appearance: Present: no acute distress, well-nourished Results - Labs CBC & Chem 7: 10/19/21 19:40 10/20/21 00:27 Labs: Laboratory Last Values WBC 12.7 K/mm3 (4.5-11.0) H 10/19/21 19:40 RBC 4.47 M/mm3 (3.65-5.03) 10/19/21 19:40 Hgb 13.6 gm/dl (11.8-15.2) 10/19/21 19:40 Hct 41.4 % (35.5-45.6) 10/19/21 19:40 MCV 93 fl (84-94) 10/19/21 19:40 MCH 30 pg (28-32) 10/19/21 19:40 MCHC 33 % (32-34) 10/19/21 19:40 RDW 13.5 % (13.2-15.2) 10/19/21 19:40 Plt Count 390 K/mm3 (140-440) 10/19/21 19:40 Lymph % (Auto) 21.6 % (13.4-35.0) 10/19/21 19:40 [place] % (Auto) 6.9 % (0.0-7.3) 10/19/21 19:40 Eos % (Auto) 0.1 % (0.0-4.3) 10/19/21 19:40 Baso % (Auto) 0.3 % (0.0-1.8) 10/19/21 19:40 Lymph # (Auto) 2.7 K/mm3 (1.2-5.4) 10/19/21 19:40 [place] # (Auto) 0.9 K/mm3 (0.0-0.8) H 10/19/21 19:40 Eos # (Auto) 0.0 K/mm3 (0.0-0.4) 10/19/21 19:40 Baso # (Auto) 0.0 K/mm3 (0.0-0.1) 10/19/21 19:40 Seg Neutrophils % 71.1 % (40.0-70.0) H 10/19/21 19:40 Seg Neutrophils # 9.0 K/mm3 (1.8-7.7) H 10/19/21 19:40 Sodium 132 mmol/L (137-145) L 10/20/21 00:27 Potassium 4.7 mmol/L (3.6-5.0) 10/20/21 00:27 Chloride 89.4 mmol/L (98-107) L 10/20/21 00:27 Carbon Dioxide 28 mmol/L (22-30) 10/20/21 00:27 Anion Gap 19 mmol/L 10/20/21 00:27 BUN 74 mg/dL (9-20) H 10/20/21 00:27 Creatinine 2.0 mg/dL (0.8-1.3) H 10/20/21 00:27 Estimated GFR 48 ml/min 10/20/21 00:27 BUN/Creatinine Ratio 37 % 10/20/21 00:27 Glucose 172 mg/dL (75-100) H 10/20/21 00:27 POC Glucose 221 mg/dL (70-105) H 10/20/21 12:00 Hemoglobin A1c 9.9 % (4-6) H 10/20/21 11:12 Calcium 9.3 mg/dL (8.4-10.2) 10/20/21 00:27 Total Bilirubin 0.40 mg/dL (0.1-1.2) 10/19/21 19:40 AST 99 units/L (5-40) H 10/19/21 19:40 ALT 57 units/L (7-56) H 10/19/21 19:40 Alkaline Phosphatase 113 units/L (35-129) 10/19/21 19:40 Total Protein 8.4 g/dL (6.3-8.2) H 10/19/21 19:40 Albumin 5.4 g/dL (3.9-5) H 10/19/21 19:40 Albumin/Globulin Ratio 1.8 % 10/19/21 19:40 Lipase 29 units/L (13-60) 10/19/21 19:40 [place]/IV: Voiding Method Urinal Active Medications - Current Medications Current Medications: Generic Name Dose Route Start Last Admin Trade Name Freq PRN Reason Stop Dose Admin Acetaminophen 650 mg 10/20/21 01:34 Acetaminophen 325 Mg Tab PO Q4H PRN Pain MILD(1-3)/Fever >100.5/SANCHES Albuterol 2.5 mg 10/20/21 01:34 Albuterol 2.5 Mg/3 Ml Nebu IH Q3HRT PRN Shortness Of Breath Albuterol/Ipratropium 1 ampul 10/20/21 02:00 10/20/21 09:58 Ipratropium/Albuterol Sulfate 3 Ml Ampul.Neb IH Not Given Q6HRT JOSE MARTIN Dextrose 0 ml 10/20/21 01:34 Dextrose 50% In Water (25gm) 50 Ml Syringe IV Q30MIN PRN Hypoglycemia Protocol Famotidine 20 mg 10/20/21 10:00 10/20/21 13:20 Famotidine 20 Mg/2 Ml Inj IV 20 mg BID JOSE MARTIN Administration Sodium Chloride 1,000 mls @ 100 mls/hr 10/20/21 12:00 Nacl 0.9% 1000 Ml IV DIRECT JOSE MARTIN Insulin Glargine 16 units 10/21/21 08:00 Insulin Glargine 100 Units/Ml SUB-Q QAMDIAB [facility] Insulin Glargine 12 units 10/20/21 18:00 Insulin Glargine 100 Units/Ml SUB-Q QPM [facility] Insulin Human Lispro 0 unit 10/20/21 06:00 10/20/21 13:21 Insulin Lispro 100 Unit/Ml SUB-Q 1 unit Q6HR [facility] Administration Protocol Morphine Sulfate 2 mg 10/20/21 01:34 Morphine 2 Mg/1 Ml Inj IV Q4H PRN Pain, Moderate (4-6) Morphine Sulfate 4 mg 10/20/21 01:34 Morphine 4 Mg/1 Ml Inj IV Q4H PRN Pain , Severe (7-10) Ondansetron HCl 4 mg 10/20/21 01:34 Ondansetron 4 Mg/2 Ml Inj IV Q8H PRN Nausea And Vomiting Polyethylene Glycol 17 gm 10/20/21 01:45 Polyethylene Glycol 3350 17 Gm Powder PO QDAY PRN Constipation Sodium Chloride 10 ml 10/20/21 10:00 10/20/21 13:21 Sodium Chloride 0.9% 10 Ml Flush Syringe IV 10 ml BID [facility] Administration Sodium Chloride 10 ml 10/20/21 01:34 Sodium Chloride 0.9% 10 Ml Flush Syringe IV PRN PRN LINE FLUSH Sucralfate 1 gm 10/20/21 15:00 Sucralfate 1 Gm/10 Ml Oral Liqd PO Q6HR [facility]
[2021-10-20] MEDS: SUCRALFATE 1 GM/10 ML ORAL LIQD PO SCH (15:13)
[2021-10-20] MEDS: MORPHINE 2 MG/1 ML INJ IV PRN ×2 (15:13→19:47)
[2021-10-20] MEDS: SODIUM CHLORIDE 0.9% 1000 ML 1,000 ML IV SCH (15:19)
[2021-10-20] MEDS: INSULIN GLARGINE 100 UNITS/ML SUB-Q SCH (18:29)
[2021-10-20 20:52] LABS: Calcium 9.4 mg/dL (8.4-10.2)
[2021-10-21] MEDS: MORPHINE 2 MG/1 ML INJ IV PRN ×5 (01:31→22:40)
[2021-10-21] MEDS: SODIUM CHLORIDE 0.9% 1000 ML 1,000 ML IV SCH (01:40)
[2021-10-21] MEDS: IPRATROPIUM/ALBUTEROL SULFATE 3 ML AMPUL.NEB IH SCH ×5 (01:42→22:53)
[2021-10-21 05:51] LABS: Basophils % (Auto) 0.2 % (0.0-1.8); Eosinophils % (Auto) 0.4 % (0.0-4.3); Hemoglobin 12.4 gm/dl (11.8-15.2); Lymphocytes # (Auto) 3.2 K/mm3 (1.2-5.4); Lymphocytes % (Auto) 29.6 % (13.4-35.0); Mean Corpuscular HGB Conc 35 % (32-34); Mean Corpuscular Volume 92 fl (84-94); Monocytes % (Auto) 8.8 % (0.0-7.3); Platelet Count 301 K/mm3 (140-440); Red Blood Count 3.83 M/mm3 (3.65-5.03); Red Cell Distribution Width 13.8 % (13.2-15.2)
[2021-10-21] MEDS: SUCRALFATE 1 GM/10 ML ORAL LIQD PO SCH ×5 (06:04→23:57)
[2021-10-21 06:13] LABS: Alanine Aminotransferase 46 units/L (7-56); Albumin 4.1 g/dL (3.9-5); BUN/Creatinine Ratio 27; Blood Urea Nitrogen 46 mg/dL (9-20); Calcium 8.9 mg/dL (8.4-10.2); Hemolysis Index 0
[2021-10-21 06:17] LABS: Bilirubin,Direct < 0.2 mg/dL (0-0.2)
[2021-10-21] MEDS: FAMOTIDINE 20 MG TAB PO SCH ×2 (09:11→21:19)
[2021-10-21] MEDS: INSULIN GLARGINE 100 UNITS/ML SUB-Q SCH ×2 (09:17→18:26)
[2021-10-21] MEDS: SENNOSIDES ORAL LIQD 8.8 MG/5 ML ORAL LIQD PO PRN (11:16)
[2021-10-21] MEDS: POLYETHYLENE GLYCOL 3350 17 GM POWDER PO PRN (13:29)
--- NOTE | 2021-10-21 15:33 | Progress Note ---
Assessment and Plan Impression: * tim * volume depletion * abdominal pain * celiac disease Plan: * ivfs and daily lytes * cr is better, na impreoved * tim partially due to volume depletion * continue ivfs * adv diet as tolerated * no indication for [employer] * strict i/is * avoid nephrotoxins * will see prn Subjective Date of service: 10/21/21 Principal diagnosis: tim on ckd Interval history: resting in bed Objective - Exam Narrative Exam: General appearance: Present: no acute distress, well-nourished - EENT Eyes: Present: PERRL ENT: hearing intact, clear oral mucosa - Neck Neck: Present: supple, normal ROM - Respiratory Respiratory effort: normal Respiratory: bilateral: CTA - Cardiovascular Heart Sounds: Present: S1 & S2. Absent: rub, click - Extremities Extremities: pulses symmetrical, No edema Peripheral Pulses: within normal limits - Abdominal General gastrointestinal: Present: soft, non-tender, non-distended, normal bowel sounds Male genitourinary: Present: normal - Integumentary Integumentary: Present: clear, warm, dry - Musculoskeletal Musculoskeletal: gait normal, strength equal bilaterally - Psychiatric Psychiatric: appropriate mood/affect, intact judgment & insight - Neurologic Neurologic: CNII-XII intact, moves all extremities Results - Labs - Vital Signs Vital signs: Vital Signs - 12hr 10/21/21 10/21/21 04:36 12:02 Temperature 98.6 F 99.0 F Pulse Rate 64 65 Respiratory 18 18 Rate Blood Pressure 137/86 121/85 O2 Sat by Pulse 97 97 Oximetry - Lab 10/21/21 05:17 10/21/21 05:17 Most recent lab results Calcium 8.9 mg/dL (8.4-10.2) 10/21/21 05:17 Medications & Allergies - Medications Allergies/Adverse Reactions: Allergies No Known Allergies Allergy (Verified 10/19/21 14:23) Home Medications: Home Medications Medication Instructions Recorded Confirmed Last Taken Type Ciprofloxacin HCl 500 mg PO BID #14 04/29/21 10/20/21 Unknown Rx Famotidine [Pepcid] 20 mg PO BID #20 tablet 04/29/21 10/20/21 Unknown Rx HYDROcodone/APAP 5-325 [[place] 1 each PO Q6HR PRN #12 tablet 04/29/21 10/20/21 Unknown Rx 5/325] Ondansetron [Zofran Odt] 4 mg PO Q8HR PRN #15 tab.rapdis 04/29/21 10/20/21 Unknown Rx Active Medications: Generic Name Dose Route Start Last Admin Trade Name Freq PRN Reason Stop Dose Admin Acetaminophen 650 mg 10/20/21 01:34 Acetaminophen 325 Mg Tab PO Q4H PRN Pain MILD(1-3)/Fever >100.5/SANCHES Albuterol 2.5 mg 10/20/21 01:34 Albuterol 2.5 Mg/3 Ml Nebu IH Q3HRT PRN Shortness Of Breath Albuterol/Ipratropium 1 ampul 10/20/21 02:00 10/21/21 14:34 Ipratropium/Albuterol Sulfate 3 Ml Ampul.Neb IH Not Given Q6HRT JOSE MARTIN Dextrose 0 ml 10/20/21 01:34 Dextrose 50% In Water (25gm) 50 Ml Syringe IV Q30MIN PRN Hypoglycemia Protocol Famotidine 20 mg 10/21/21 10:00 10/21/21 09:11 Famotidine 20 Mg Tab PO 20 mg BID JOSE MARTIN Administration Sodium Chloride 1,000 mls @ 100 mls/hr 10/20/21 12:00 10/21/21 01:40 Nacl 0.9% 1000 Ml IV 100 mls/hr DIRECT JOSE MARTIN Administration Insulin Glargine 16 units 10/21/21 08:00 10/21/21 09:17 Insulin Glargine 100 Units/Ml SUB-Q 16 units QAMDIAB JOSE MARTIN Administration Insulin Glargine 12 units 10/20/21 18:00 10/20/21 18:29 Insulin Glargine 100 Units/Ml SUB-Q 12 units QPM JOSE MARTIN Administration Insulin Human Lispro 0 unit 10/20/21 06:00 10/21/21 00:00 Insulin Lispro 100 Unit/Ml SUB-Q Not Given Q6HR JOSE MARTIN Protocol Morphine Sulfate 1 mg 10/21/21 16:00 Morphine 2 Mg/1 Ml Inj IV Q4H PRN Pain, Moderate (4-6) Ondansetron HCl 4 mg 10/20/21 01:34 Ondansetron 4 Mg/2 Ml Inj IV Q8H PRN Nausea And Vomiting Polyethylene Glycol 17 gm 10/20/21 01:45 10/21/21 13:29 Polyethylene Glycol 3350 17 Gm Powder PO 17 gm QDAY PRN Administration Constipation Senna 17.6 mg 10/20/21 18:56 10/21/21 11:16 Sennosides Oral Liqd 8.8 Mg/5 Ml Oral Liqd PO 17.6 mg Q12HR PRN Administration Laxative Effect Sodium Chloride 10 ml 10/20/21 10:00 10/21/21 09:12 Sodium Chloride 0.9% 10 Ml Flush Syringe IV 10 ml BID JOSE MARTIN Administration Sodium Chloride 10 ml 10/20/21 01:34 Sodium Chloride 0.9% 10 Ml Flush Syringe IV PRN PRN LINE FLUSH Sucralfate 1 gm 10/20/21 15:00 10/21/21 11:17 Sucralfate 1 Gm/10 Ml Oral Liqd PO 1 gm Q6HR JOSE MARTIN Administration
[2021-10-21] MEDS: INSULIN LISPRO 100 UNIT/ML SUB-Q SCH ×4 (20:00→22:39)
[2021-10-21] MEDS ORDERED: ZOLPIDEM 5 MG TAB PO ONE (23:50)
[2021-10-22] MEDS: INSULIN LISPRO 100 UNIT/ML SUB-Q SCH ×4 (00:04→18:26)
[2021-10-22] MEDS: IPRATROPIUM/ALBUTEROL SULFATE 3 ML AMPUL.NEB IH SCH ×2 (03:26→07:33)
[2021-10-22] MEDS ORDERED: HYDROmorphone 1 MG/1 ML INJ IV ONE (05:36)
[2021-10-22] MEDS: SUCRALFATE 1 GM/10 ML ORAL LIQD PO SCH ×3 (05:38→18:17)
[2021-10-22 05:43] LABS: BUN/Creatinine Ratio 15; Blood Urea Nitrogen 20 mg/dL (9-20); Calcium 9.2 mg/dL (8.4-10.2); Hemolysis Index 2
[2021-10-22] MEDS: D5W/0.9% NACL 1,000 ML IV SCH (05:58)
--- NOTE | 2021-10-22 07:38 | Progress Note ---
Assessment and Plan Assessment and plan: History of present illness: 26 years old male with past medical history of diabetes and celiac disease was brought to the emergency room because of abdominal pain for last 1 days. Patient also complained of nausea vomiting. In the emergency room CT scan of the abdomen shows no acute finding. Large amount of stool throughout the colon, compatible with constipation. But patient sodium is 127, BUN is 79, creatinine 2.7 and blood glucose is 409, bicarb is 23, anion gap 29. She will going to admit the patient we will put the patient on IV fluid insulin sliding scale we will consult nephrology for evaluation Hospital Course: 10/20: Resumed home insulin regimen. Added sucralfate for gastroparesis symptomlogy. Continue laxatives until BM achieved. Trend both renal and hepatic function. 10/21: No bowel movement thus far. Miralax and senna given. Ordered mineral oil enema. tolerated CLD diet, no nausea/vomiting...only complaining of abd pain. Ordered full liquid diet and see how patient tolerates. Will await bm and can be d/c after. May require repeat imaging if no resolution. Assessment and Plan: #abdominal pain #Constipation/fecal impaction -etiology constipation in the setting of gastroparesis. - CT scan of the abdomen shows no acute finding. Large amount of stool throughout the colon, compatible with constipation. NO obstruction noted. - clear liquid diet - miralax/senna until BM achieved #HHNK (resolved) #Type 1 Diabetes with Hyperglycemia #Gastroparesis - type 1 diabetic. hyperglycemic on admission BG - no UA vbg ph ordered on admission. Ordered - initially on IV insulin, now on SSI q6hr. - hemoglobin A1c: 9.9 - home regimen: basaglar 16 unit qAM, 12 units qPM (reordered) - current regimen: Moderate SSI - blood glucose goal 140-180 while inpatient - continue to monitor -sucralfate for gastroparesis. #LUZ due to vasomotor nephropathy - Cr: 2.7, downtrending to Cr: 2.0 - IVF rehydration - trend on serial bmp - nephrology consultation #Celiac disease - noted, avoid gluten #Transaminitis - AST: 99, ALT: 57 - unclear etiology - trend on hepatic panel. #Advance care planning Disease education conducted, care plan discussed, diagnoses discussed, prognosis discussed, patient is full code, patient acknowledges understanding and agree with care plan, +30 minutes. #Coordination of CARE time: 30 minutes. Total visit time equals 30 or more minutes with greater than 50% spent [id number] on coordination of care and c ounseling. Dispo: admit to med/surg. Discharge likely in next 24hr pending symptomatic improvement. History Interval history: Complaining of abdominal pain especially after laxative admin. He states he has not had a bm. Only passes flatus. Hospitalist Physical - Physical exam Narrative exam: Physical Exam: VITAL SIGNS: Reviewed. GENERAL: The patient appears normally developed, Vital signs as documented. mild distress HEAD: No signs of head trauma. EYES: Pupils are equal. Extraocular motions intact. EARS: Hearing grossly intact. MOUTH: Oropharynx is normal. NECK: No adenopathy, no JVD. CHEST: Chest with clear breath sounds bilaterally. No wheezes, rales, or rho nchi. CARDIAC: Regular rate and rhythm. S1 and S2, without murmurs, gallops, or rubs. VASCULAR: No Edema. Peripheral pulses normal and equal in all extremities. ABDOMEN: grossly tender. No rebound or guarding, and no masses palpated. Bowel Sounds normal. MUSCULOSKELETAL: Good range of motion of all major joints. Extremities without clubbing, cyanosis or edema. NEUROLOGIC EXAM: Alert and oriented x 4. no focal sensory or strength deficits. PSYCHIATRIC: Mood normal. SKIN: detail exam as documented in skin assessment - Constitutional Vitals: Temp Pulse Resp BP Pulse Ox 97.8 F 64 18 146/104 97 10/22/21 06:00 10/22/21 06:00 10/22/21 06:00 10/22/21 06:00 10/22/21 07:35 General appearance: Present: no acute distress, well-nourished Results - Labs CBC & Chem 7: 10/21/21 05:17 10/22/21 04:55 Labs: Laboratory Last Values WBC 10.9 K/mm3 (4.5-11.0) 10/21/21 05:17 RBC 3.83 M/mm3 (3.65-5.03) 10/21/21 05:17 Hgb 12.4 gm/dl (11.8-15.2) 10/21/21 05:17 Hct 35.0 % (35.5-45.6) L D 10/21/21 05:17 MCV 92 fl (84-94) 10/21/21 05:17 MCH 32 pg (28-32) 10/21/21 05:17 MCHC 35 % (32-34) H 10/21/21 05:17 RDW 13.8 % (13.2-15.2) 10/21/21 05:17 Plt Count 301 K/mm3 (140-440) 10/21/21 05:17 Lymph % (Auto) 29.6 % (13.4-35.0) 10/21/21 05:17 Gregg % (Auto) 8.8 % (0.0-7.3) H 10/21/21 05:17 Eos % (Auto) 0.4 % (0.0-4.3) 10/21/21 05:17 Baso % (Auto) 0.2 % (0.0-1.8) 10/21/21 05:17 Lymph # (Auto) 3.2 K/mm3 (1.2-5.4) 10/21/21 05:17 Gregg # (Auto) 1.0 K/mm3 (0.0-0.8) H 10/21/21 05:17 Eos # (Auto) 0.0 K/mm3 (0.0-0.4) 10/21/21 05:17 Baso # (Auto) 0.0 K/mm3 (0.0-0.1) 10/21/21 05:17 Seg Neutrophils % 61.0 % (40.0-70.0) 10/21/21 05:17 Seg Neutrophils # 6.7 K/mm3 (1.8-7.7) 10/21/21 05:17 VBG pH 7.445 (7.320-7.420) H 10/20/21 20:20 Sodium 139 mmol/L (137-145) 10/22/21 04:55 Potassium 3.5 mmol/L (3.6-5.0) L D 10/22/21 04:55 Chloride 99.9 mmol/L (98-107) 10/22/21 04:55 Carbon Dioxide 27 mmol/L (22-30) 10/22/21 04:55 Anion Gap 16 mmol/L 10/22/21 04:55 BUN 20 mg/dL (9-20) 10/22/21 04:55 Creatinine 1.3 mg/dL (0.8-1.3) 10/22/21 04:55 Estimated GFR > 60 ml/min 10/22/21 04:55 BUN/Creatinine Ratio 15 % 10/22/21 04:55 Glucose 49 mg/dL (75-100) L 10/22/21 04:55 POC Glucose 79 mg/dL (70-105) 10/22/21 06:30 Hemoglobin A1c 9.9 % (4-6) H 10/20/21 11:12 Calcium 9.2 mg/dL (8.4-10.2) 10/22/21 04:55 Total Bilirubin 0.30 mg/dL (0.1-1.2) 10/21/21 05:17 Direct Bilirubin < 0.2 mg/dL (0-0.2) 10/21/21 05:17 Indirect Bilirubin 0.1 mg/dL 10/21/21 05:17 AST 85 units/L (5-40) H 10/21/21 05:17 ALT 46 units/L (7-56) 10/21/21 05:17 Alkaline Phosphatase Not Reportable 10/21/21 05:17 Total Protein 7.2 g/dL (6.3-8.2) 10/21/21 05:17 Albumin 4.1 g/dL (3.9-5) 10/21/21 05:17 Albumin/Globulin Ratio 1.3 % 10/21/21 05:17 Lipase 29 units/L (13-60) 10/19/21 19:40 Greenberg/IV: Voiding Method Urinal Active Medications - Current Medications Current Medications: Generic Name Dose Route Start Last Admin Trade Name Freq PRN Reason Stop Dose Admin Acetaminophen 650 mg 10/20/21 01:34 Acetaminophen 325 Mg Tab PO Q4H PRN Pain MILD(1-3)/Fever >100.5/SANCHES Albuterol 2.5 mg 10/22/21 07:37 Albuterol 2.5 Mg/3 Ml Nebu IH Q4HRT PRN Shortness Of Breath Dextrose 0 ml 10/20/21 01:34 10/22/21 05:53 Dextrose 50% In Water (25gm) 50 Ml Syringe IV 50 ml Q30MIN PRN Administration Hypoglycemia Protocol Famotidine 20 mg 10/21/21 10:00 10/21/21 21:19 Famotidine 20 Mg Tab PO 20 mg BID JOSE MARTIN Administration Dextrose/Sodium Chloride 1,000 mls @ 100 mls/hr 10/22/21 06:00 10/22/21 05:58 D5ns IV 100 mls/hr DIRECT JOSE MARTIN Administration Insulin Glargine 16 units 10/21/21 08:00 10/21/21 09:17 Insulin Glargine 100 Units/Ml SUB-Q 16 units QAMDIAB JOSE MARTIN Administration Insulin Glargine 12 units 10/20/21 18:00 10/21/21 18:26 Insulin Glargine 100 Units/Ml SUB-Q 12 units QPM JOSE MARTIN Administration Insulin Human Lispro 0 unit 10/20/21 06:00 10/22/21 06:06 Insulin Lispro 100 Unit/Ml SUB-Q Not Given Q6HR [facility] Protocol Morphine Sulfate 1 mg 10/21/21 16:00 10/21/21 22:40 Morphine 2 Mg/1 Ml Inj IV 1 mg Q4H PRN Administration Pain, Moderate (4-6) Ondansetron HCl 4 mg 10/20/21 01:34 Ondansetron 4 Mg/2 Ml Inj IV Q8H PRN Nausea And Vomiting Polyethylene Glycol 17 gm 10/20/21 01:45 10/21/21 13:29 Polyethylene Glycol 3350 17 Gm Powder PO 17 gm QDAY PRN Administration Constipation Senna 17.6 mg 10/20/21 18:56 10/21/21 11:16 Sennosides Oral Liqd 8.8 Mg/5 Ml Oral Liqd PO 17.6 mg Q12HR PRN Administration Laxative Effect Sodium Chloride 10 ml 10/20/21 10:00 10/21/21 22:40 Sodium Chloride 0.9% 10 Ml Flush Syringe IV 10 ml BID JOSE MARTIN Administration Sodium Chloride 10 ml 10/20/21 01:34 Sodium Chloride 0.9% 10 Ml Flush Syringe IV PRN PRN LINE FLUSH Sucralfate 1 gm 10/20/21 15:00 10/22/21 05:38 Sucralfate 1 Gm/10 Ml Oral Liqd PO 1 gm Q6HR JOSE MARTIN Administration Nutrition/Malnutrition Assess - Dietary Evaluation Nutrition/Malnutrition Findings: Nutrition Notes Start: 10/20/21 15:50 Freq: Status: Active Protocol: Document 10/21/21 12:14 ZAHEER (Rec: 10/21/21 12:36 ZAHEER [id number]) Nutrition Notes Initial or Follow up Assessment Current Diagnosis Acute Kidney Injury,Diabetes Other Pertinent Diagnosis Celiac Disease, Abdominal Pain /N/V/Constipation. Current Diet Clear Liquid -Gluten Free & Consistent Carbohydrates- Diet (since D 10/20). Labs/Tests 10/21: BUN 46, Crea 1.7, Glu 135, HbA1c 9.9%. Pertinent Medications 10/21: Lantus 16U, others nutritionally unremarkable. Height 5 ft 4 in Weight 60.328 kg [place] Body Weight (kg) 59.09 BMI 22.8 Weight change and time frame No body weight change reported in 1 day. Weight Status Appropriate Subjective/Other Information RD consult for routine F/U on dietary Advancement. Pt's diet advanced to PO, No reports on Pt's PO intake of meals at the time, will assess at F/U. I will prescribe Gluten Free and Consistent Carbohydrates modifications to Pt's diet to support T1DM and Celiac Disease conditions. Pt is on Room Air, O2 saturation @ 98%, according to Physical Assessment history notes. Percent of energy/protein needs met: Prescribed Clear Liquids - Gluten Free and Consistent Carbohydrates- Diet provides for energy/protein needs (590 Kcal/16 g) during LOS. Burn Absent Trauma Absent GI Symptoms Constipation Food Allergy No Skin Integrity/Comment Assessment WNL. 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 As Evidenced by Signs and Symptoms Need for gluten free meals. #1 Nutrition Diagnosis Altered GI function Etiology Uncontrolled T1DM. As Evidenced by Signs and Symptoms Gastroparesis. Is patient on ventilator? No Is Patient Ambulatory and/or Out of Bed Yes REE-([place]-ambulatory/OOB) [ 1929.564 NUTR.MSJOOB] Kcal/Kg value to use for calculation 24 Approximate Energy Requirements Using 1448 kcal/Kg Calculation Used for Recommendations Kcal/kg Additional Notes Protein: 0.8-1 g/Kg ABW; 48-60 g/day. Fluids: 1 ml/Kcal, or as per MD. Nutrition Intervention Change Diet Order: Continue Clear Liquids Diet, advance to Full Liquids Diet as tolerated. Gluten Free and Consistent Carbohydrates modified. Goal #1 Adjust the dietary intervention to better serve Pt's needs and clinical conditions during LOS. Follow-Up By: 10/28/21 Additional Comments Nutrition education will be provided at F/U, if feasible. Start monitoring food tolerance, %PO intake of meals , and BM.
[2021-10-22] MEDS ORDERED: ALBUTEROL 2.5 MG/3 ML NEBU IH PRN (08:00)
[2021-10-22] MEDS: INSULIN GLARGINE 100 UNITS/ML SUB-Q SCH ×2 (08:11→18:25)
[2021-10-22] MEDS: FAMOTIDINE 20 MG TAB PO SCH ×2 (09:53→22:00)
[2021-10-22] MEDS: POLYETHYLENE GLYCOL 3350 17 GM POWDER PO PRN (09:57)
[2021-10-22] MEDS: SENNOSIDES ORAL LIQD 8.8 MG/5 ML ORAL LIQD PO PRN (11:49)
[2021-10-22] MEDS: ONDANSETRON 4 MG/2 ML INJ IV PRN (11:57)
[2021-10-22] MEDS: MORPHINE 2 MG/1 ML INJ IV PRN ×2 (11:57→19:59)
[2021-10-22] MEDS ORDERED: MINERAL OIL ENEMA 133 ML PR SCH (14:30)
[2021-10-23] MEDS: MORPHINE 2 MG/1 ML INJ IV PRN ×3 (01:00→10:20)
[2021-10-23] MEDS: SUCRALFATE 1 GM/10 ML ORAL LIQD PO SCH ×4 (01:01→18:55)
[2021-10-23] MEDS: ONDANSETRON 4 MG/2 ML INJ IV PRN ×2 (01:02→05:35)
[2021-10-23] MEDS: D5W/0.9% NACL 1,000 ML IV SCH ×2 (01:17→10:40)
[2021-10-23] MEDS: INSULIN LISPRO 100 UNIT/ML SUB-Q SCH ×5 (01:24→21:19)
[2021-10-23 06:18] LABS: BUN/Creatinine Ratio 8; Blood Urea Nitrogen 10 mg/dL (9-20); Calcium 9.2 mg/dL (8.4-10.2); Hemolysis Index 5
--- NOTE | 2021-10-23 08:14 | XRay Report ---
ABDOMEN, SINGLE VIEW INDICATION / CLINICAL INFORMATION: constipation, obstruction. COMPARISON: CT abdomen 10/19/2021 FINDINGS: Large amount of stool persists throughout the colon not appreciably changed from program director scouting radiograph rel ated to CT scan, 10/19/2021. Otherwise, bowel gas pattern is normal. IMPRESSION: Large amount of stool remains throughout the colon not appreciably changed from 10/19/2021 . Signer Name: Kim Kan MD Signed: 10/23/2021 8:09 AM Workstation Name: [id number]
[2021-10-23] MEDS: INSULIN GLARGINE 100 UNITS/ML SUB-Q SCH ×2 (09:04→17:07)
[2021-10-23] MEDS: FAMOTIDINE 20 MG TAB PO SCH ×2 (09:05→21:09)
[2021-10-23] MEDS ORDERED: MINERAL OIL ENEMA 133 ML PR SCH ×2 (10:00→14:30)
[2021-10-23] MEDS ORDERED: POLYETHYLENE GLYCOL/ELECT SOLN 4000 ML PO SCH (10:00)
--- NOTE | 2021-10-23 10:53 | Progress Note ---
Assessment and Plan Assessment and plan: History of present illness: 26 years old male with past medical history of diabetes and celiac disease was brought to the emergency room because of abdominal pain for last 1 days. Patient also complained of nausea vomiting. In the emergency room CT scan of the abdomen shows no acute finding. Large amount of stool throughout the colon, compatible with constipation. But patient sodium is 127, BUN is 79, creatinine 2.7 and blood glucose is 409, bicarb is 23, anion gap 29. She will going to admit the patient we will put the patient on IV fluid insulin sliding scale we will consult nephrology for evaluation Hospital Course: 10/20: Resumed home insulin regimen. Added sucralfate for gastroparesis symptomlogy. Continue laxatives until BM achieved. Trend both renal and hepatic function. 10/21: No bowel movement thus far. Miralax and senna given. Ordered mineral oil enema. tolerated CLD diet, no nausea/vomiting...only complaining of abd pain. Ordered full liquid diet and see how patient tolerates. Will await bm and can be d/c after. May require repeat imaging if no resolution. 10/22: no bm. mineral oil enema ordered. 10/23: No bm. XR abdomen shows persistent stool in rectum. ordered second mineral oil enema and golytly. Plan for d/c once patient achieves bm. May consider CTAP tomorrow if no BM. Some concern for ileus vs obstruction not visualized on original ct. Assessment and Plan: #abdominal pain #Constipation/fecal impaction -etiology constipation in the setting of gastroparesis. - CT scan of the abdomen shows no acute finding. Large amount of stool throughout the colon, compatible with constipation. NO obstruction noted. - clear liquid diet - miralax/senna until BM achieved #HHNK (resolved) #Type 1 Diabetes with Hyperglycemia #Gastroparesis - type 1 diabetic. hyperglycemic on admission BG - no UA vbg ph ordered on admission. Ordered - initially on IV insulin, now on SSI q6hr. - hemoglobin A1c: 9.9 - home regimen: basaglar 16 unit qAM, 12 units qPM (reordered) - current regimen: Moderate SSI - blood glucose goal 140-180 while inpatient - continue to monitor -sucralfate for gastroparesis. #LUZ due to vasomotor nephropathy - Cr: 2.7, downtrending to Cr: 2.0 - IVF rehydration - trend on serial bmp - nephrology consultation #Celiac disease - noted, avoid gluten #Transaminitis - AST: 99, ALT: 57 - unclear etiology - trend on hepatic panel. #Advance care planning Disease education conducted, care plan discussed, diagnoses discussed, prognosis discussed, patient is full code, patient acknowledges understanding and agree with care plan, +30 minutes. History Interval history: continues to complain of severe abdominal pain. No bowel movement yet however patient reports flatus. Hospitalist Physical - Physical exam Narrative exam: Physical Exam: VITAL SIGNS: Reviewed. GENERAL: The patient appears normally developed, Vital signs as documented. mild distress HEAD: No signs of head trauma. EYES: Pupils are equal. Extraocular motions intact. EARS: Hearing grossly intact. MOUTH: Oropharynx is normal. NECK: No adenopathy, no JVD. CHEST: Chest with clear breath sounds bilaterally. No wheezes, rales, or rhonchi. CARDIAC: Regular rate and rhythm. S1 and S2, without murmurs, gallops, or rubs. VASCULAR: No Edema. Peripheral pulses normal and equal in all extremities. ABDOMEN: grossly tender. No rebound or guarding, and no masses palpated. Bowel Sounds normal. MUSCULOSKELETAL: Good range of motion of all major joints. Extremities without clubbing, cyanosis or edema. NEUROLOGIC EXAM: Alert and oriented x 4. no focal sensory or strength deficits. PSYCHIATRIC: Mood normal. SKIN: detail exam as documented in skin assessment - Constitutional Vitals: Temp Pulse Resp BP Pulse Ox 98.0 F 55 L 18 146/100 100 10/23/21 04:19 10/23/21 04:19 10/23/21 04:19 10/23/21 04:19 10/23/21 04:19 General appearance: Present: no acute distress, well-nourished Results - Labs CBC & Chem 7: 10/21/21 05:17 10/23/21 05:30 Labs: Laboratory Last Values WBC 10.9 K/mm3 (4.5-11.0) 10/21/21 05:17 RBC 3.83 M/mm3 (3.65-5.03) 10/21/21 05:17 Hgb 12.4 gm/dl (11.8-15.2) 10/21/21 05:17 Hct 35.0 % (35.5-45.6) L D 10/21/21 05:17 MCV 92 fl (84-94) 10/21/21 05:17 MCH 32 pg (28-32) 10/21/21 05:17 MCHC 35 % (32-34) H 10/21/21 05:17 RDW 13.8 % (13.2-15.2) 10/21/21 05:17 Plt Count 301 K/mm3 (140-440) 10/21/21 05:17 Lymph % (Auto) 29.6 % (13.4-35.0) 10/21/21 05:17 [place] % (Auto) 8.8 % (0.0-7.3) H 10/21/21 05:17 Eos % (Auto) 0.4 % (0.0-4.3) 10/21/21 05:17 Baso % (Auto) 0.2 % (0.0-1.8) 10/21/21 05:17 Lymph # (Auto) 3.2 K/mm3 (1.2-5.4) 10/21/21 05:17 [place] # (Auto) 1.0 K/mm3 (0.0-0.8) H 10/21/21 05:17 Eos # (Auto) 0.0 K/mm3 (0.0-0.4) 10/21/21 05:17 Baso # (Auto) 0.0 K/mm3 (0.0-0.1) 10/21/21 05:17 Seg Neutrophils % 61.0 % (40.0-70.0) 10/21/21 05:17 Seg Neutrophils # 6.7 K/mm3 (1.8-7.7) 10/21/21 05:17 VBG pH 7.445 (7.320-7.420) H 10/20/21 20:20 Sodium 135 mmol/L (137-145) L 10/23/21 05:30 Potassium 4.4 mmol/L (3.6-5.0) D 10/23/21 05:30 Chloride 100.0 mmol/L (98-107) 10/23/21 05:30 Carbon Dioxide 23 mmol/L (22-30) 10/23/21 05:30 Anion Gap 16 mmol/L 10/23/21 05:30 BUN 10 mg/dL (9-20) 10/23/21 05:30 Creatinine 1.2 mg/dL (0.8-1.3) 10/23/21 05:30 Estimated GFR > 60 ml/min 10/23/21 05:30 BUN/Creatinine Ratio 8 % 10/23/21 05:30 Glucose 184 mg/dL (75-100) H 10/23/21 05:30 POC Glucose 159 mg/dL (70-105) H 10/23/21 08:01 Hemoglobin A1c 9.9 % (4-6) H 10/20/21 11:12 Calcium 9.2 mg/dL (8.4-10.2) 10/23/21 05:30 Total Bilirubin 0.30 mg/dL (0.1-1.2) 10/21/21 05:17 Direct Bilirubin < 0.2 mg/dL (0-0.2) 10/21/21 05:17 Indirect Bilirubin 0.1 mg/dL 10/21/21 05:17 AST 85 units/L (5-40) H 10/21/21 05:17 ALT 46 units/L (7-56) 10/21/21 05:17 Alkaline Phosphatase Not Reportable 10/21/21 05:17 Total Protein 7.2 g/dL (6.3-8.2) 10/21/21 05:17 Albumin 4.1 g/dL (3.9-5) 10/21/21 05:17 Albumin/Globulin Ratio 1.3 % 10/21/21 05:17 Lipase 29 units/L (13-60) 10/19/21 19:40 Urine Eosinophils None seen (None Seen) 10/22/21 06:10 Greenberg/IV: Voiding Method Toilet Active Medications - Current Medications Current Medications: Generic Name Dose Route Start Last Admin Trade Name Freq PRN Reason Stop Dose Admin Acetaminophen 650 mg 10/20/21 01:34 Acetaminophen 325 Mg Tab PO Q4H PRN Pain MILD(1-3)/Fever >100.5/SANCHES Albuterol 2.5 mg 10/22/21 08:00 Albuterol 2.5 Mg/3 Ml Nebu IH Q4HRT PRN Shortness Of Breath Dextrose 0 ml 10/20/21 01:34 10/22/21 05:53 Dextrose 50% In Water (25gm) 50 Ml Syringe IV 50 ml Q30MIN PRN Administration Hypoglycemia Protocol Famotidine 20 mg 10/21/21 10:00 10/23/21 09:05 Famotidine 20 Mg Tab PO 20 mg BID JOSE MARTIN Administration Dextrose/Sodium Chloride 1,000 mls @ 100 mls/hr 10/22/21 06:00 10/23/21 10:40 D5ns IV 100 mls/hr DIRECT JOSE MARTIN Administration Insulin Glargine 16 units 10/21/21 08:00 10/23/21 09:04 Insulin Glargine 100 Units/Ml SUB-Q Not Given QAMDIAB [facility] Insulin Glargine 12 units 10/20/21 18:00 10/22/21 18:25 Insulin Glargine 100 Units/Ml SUB-Q Not Given QPM [facility] Insulin Human Lispro 0 unit 10/20/21 06:00 10/23/21 09:04 Insulin Lispro 100 Unit/Ml SUB-Q Not Given Q6HR [facility] Protocol Mineral Oil 133 ml 10/23/21 10:00 Mineral Oil Enema 133 Ml CO 10/23/21 12:00 ONCE@1000 [facility] Morphine Sulfate 1 mg 10/21/21 16:00 10/23/21 10:20 Morphine 2 Mg/1 Ml Inj IV 1 mg Q4H PRN Administration Pain, Moderate (4-6) Ondansetron HCl 4 mg 10/20/21 01:34 10/23/21 05:35 Ondansetron 4 Mg/2 Ml Inj IV 4 mg Q8H PRN Administration Nausea And Vomiting Polyethylene Glycol 17 gm 10/20/21 01:45 10/22/21 09:57 Polyethylene Glycol 3350 17 Gm Powder PO 17 gm QDAY PRN Administration Constipation Polyethylene Glycol/Electrolytes 4,000 ml 10/23/21 10:00 10/23/21 10:35 Polyethylene Glycol/Elect Soln 4000 Ml PO 10/23/21 17:00 4,000 ml ONCE@1000 [facility] Administration Senna 17.6 mg 10/20/21 18:56 10/22/21 11:49 Sennosides Oral Liqd 8.8 Mg/5 Ml Oral Liqd PO 17.6 mg Q12HR PRN Administration Laxative Effect Sodium Chloride 10 ml 10/20/21 10:00 10/23/21 09:05 Sodium Chloride 0.9% 10 Ml Flush Syringe IV 10 ml BID JOSE MARTIN Administration Sodium Chloride 10 ml 10/20/21 01:34 Sodium Chloride 0.9% 10 Ml Flush Syringe IV PRN PRN LINE FLUSH Sucralfate 1 gm 10/20/21 15:00 10/23/21 05:47 Sucralfate 1 Gm/10 Ml Oral Liqd PO 1 gm Q6HR JOSE MARTIN Administration Nutrition/Malnutrition Assess - Dietary Evaluation Nutrition/Malnutrition Findings: Nutrition Notes Start: 10/20/21 15:50 Freq: Status: Active Protocol: Document 10/21/21 12:14 ZAHEER (Rec: 10/21/21 12:36 ZAHEER [id number]) Nutrition Notes Initial or Follow up Assessment Current Diagnosis Acute Kidney Injury,Diabetes Other Pertinent Diagnosis Celiac Disease, Abdominal Pain /N/V/Constipation. Current Diet Clear Liquid -Gluten Free & Consistent Carbohydrates- Diet (since D 10/20). Labs/Tests 10/21: BUN 46, Crea 1.7, Glu 135, HbA1c 9.9%. Pertinent Medications 10/21: Lantus 16U, others nutritionally unremarkable. Height 5 ft 4 in Weight 60.328 kg [place] Body Weight (kg) 59.09 BMI 22.8 Weight change and time frame No body weight change reported in 1 day. Weight Status Appropriate Subjective/Other Information RD consult for routine F/U on dietary Advancement. Pt's diet advanced to PO, No reports on Pt's PO intake of meals at the time, will assess at F/U. I will prescribe Gluten Free and Consistent Carbohydrates modifications to Pt's diet to support T1DM and Celiac Disease conditions. Pt is on Room Air, O2 saturation @ 98%, according to Physical Assessment history notes. Percent of energy/protein needs met: Prescribed Clear Liquids - Gluten Free and Consistent Carbohydrates- Diet provides for energy/protein needs (590 Kcal/16 g) during LOS. Burn Absent Trauma Absent GI Symptoms Constipation Food Allergy No Skin Integrity/Comment Assessment WNL. 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 As Evidenced by Signs and Symptoms Need for gluten free meals. #1 Nutrition Diagnosis Altered GI function Etiology Uncontrolled T1DM. As Evidenced by Signs and Symptoms Gastroparesis. Is patient on ventilator? No Is Patient Ambulatory and/or Out of Bed Yes REE-([place]-ambulatory/OOB) [ 1929.564 NUTR.MSJOOB] Kcal/Kg value to use for calculation 24 Approximate Energy Requirements Using 1448 kcal/Kg Calculation Used for Recommendations Kcal/kg Additional Notes Protein: 0.8-1 g/Kg ABW; 48-60 g/day. Fluids: 1 ml/Kcal, or as per MD. Nutrition Intervention Change Diet Order: Continue Clear Liquids Diet, advance to Full Liquids Diet as tolerated. Gluten Free and Consistent Carbohydrates modified. Goal #1 Adjust the dietary intervention to better serve Pt's needs and clinical conditions during LOS. Follow-Up By: 10/28/21 Additional Comments Nutrition education will be provided at F/U, if feasible. Start monitoring food tolerance, %PO intake of meals , and BM.
[2021-10-23] MEDS ORDERED: INSULIN GLARGINE 100 UNITS/ML SUB-Q SCH ×2 (17:12)
[2021-10-23] MEDS ORDERED: MINERAL OIL ENEMA 133 ML PR ONE (17:14)
[2021-10-23] MEDS: SENNOSIDES ORAL LIQD 8.8 MG/5 ML ORAL LIQD PO SCH (21:14)
[2021-10-23] MEDS: POLYETHYLENE GLYCOL 3350 17 GM POWDER PO SCH (21:19)
[2021-10-23] MEDS ORDERED: traMADol 50 MG TAB PO ONE (23:25)
[2021-10-24] MEDS: SUCRALFATE 1 GM/10 ML ORAL LIQD PO SCH ×2 (00:36→05:14)
[2021-10-24] MEDS: SENNOSIDES ORAL LIQD 8.8 MG/5 ML ORAL LIQD PO SCH ×2 (01:05→09:19)
[2021-10-24] MEDS: D5W/0.9% NACL 1,000 ML IV SCH (05:14)
[2021-10-24 06:38] LABS: BUN/Creatinine Ratio 6; Blood Urea Nitrogen 7 mg/dL (9-20); Calcium 9.3 mg/dL (8.4-10.2); Hemolysis Index 1
[2021-10-24 06:53] VITALS: BP 159/82
--- NOTE | 2021-10-24 08:02 | Discharge Summary ---
Providers - Providers Date of Admission: 10/20/21 01:34 Date of discharge: 10/24/21 Attending physician: JAEL REINOSO MD 10/20/21 01:35 Consult to Dietitian/Nutrition [CONS] Routine Physician Instructions: Reason For Exam: Reason for Consult: Diet education 10/20/21 01:45 Consult to Physician [CONS] Routine Comment: Consulting Provider: LINH MAST Physician Instructions: Reason For Exam: luz 10/23/21 17:12 Physical Therapy Evaluation and Treat [CONS] Routine Comment: Reason For Exam: ambulate Primary care physician: JOY HART Hospitalization Reason for admission: nausea, abd pain. Condition: Stable Hospital course: History of present illness: 26 years old male with past medical history of diabetes and celiac disease was brought to the emergency room because of abdominal pain for last 1 days. Patient also complained of nausea vomiting. In the emergency room CT scan of the abdomen shows no acute finding. Large amount of stool throughout the colon, compatible with constipation. But patient sodium is 127, BUN is 79, creatinine 2.7 and blood glucose is 409, bicarb is 23, anion gap 29. She will going to admit the patient we will put the patient on IV fluid insulin sliding scale we will consult nephrology for evaluation Hospital Course: 10/20: Resumed home insulin regimen. Added sucralfate for gastroparesis symptomlogy. Continue laxatives until BM achieved. Trend both renal and hepatic function. 10/21: No bowel movement thus far. Miralax and senna given. Ordered mineral oil enema. tolerated CLD diet, no nausea/vomiting...only complaining of abd pain. Ordered full liquid diet and see how patient tolerates. Will await bm and can be d/c after. May require repeat imaging if no resolution. 10/22: no bm. mineral oil enema ordered. 10/23: No bm. XR abdomen shows persistent stool in rectum. ordered second mineral oil enema and golytly. Plan for d/c once patient achieves bm. May consider CTAP tomorrow if no BM. Some concern for ileus vs obstruction not visualized on original ct. 10/24: BM this AM. Discharge home with rx for senna, miralax, and sucralfate. Advised to follow up with pcp and a GI doctor. Advised to resume home insulin regimen and follow up [facility] OP endocrinology. Assessment and Plan: #abdominal pain #Constipation/fecal impaction -etiology constipation in the setting of gastroparesis. - CT scan of the abdomen shows no acute finding. Large amount of stool throughout the colon, compatible with constipation. NO obstruction noted. - clear liquid diet - miralax/senna until BM achieved #HHNK (resolved) #Type 1 Diabetes with Hyperglycemia #Gastroparesis - type 1 diabetic. hyperglycemic on admission BG - no UA vbg ph ordered on admission. Ordered - initially on IV insulin, now on SSI q6hr. - hemoglobin A1c: 9.9 - home regimen: basaglar 16 unit qAM, 12 units qPM (reordered) - current regimen: Moderate SSI - blood glucose goal 140-180 while inpatient - continue to monitor -sucralfate for gastroparesis. #LUZ due to vasomotor nephropathy - Cr: 2.7, downtrending to Cr: 2.0 - IVF rehydration - trend on serial bmp - nephrology consultation #Celiac disease - noted, avoid gluten #Transaminitis - AST: 99, ALT: 57 - unclear etiology - trend on hepatic panel. #Advance care planning Disease education conducted, care plan discussed, diagnoses discussed, prognosis discussed, patient is full code, patient acknowledges understanding and agree with care plan, +30 minutes. Disposition: 01 HOME / SELF CARE / HOMELESS Final Discharge Diagnosis (Prints w/discharge instructions): Abdominal pain, consitpatoin ,HHNK, Type 1 Diabtes with Hyperglycemia, Acute kidney injury due to vasomotor nephropathy Time spent for discharge: 35 Core Measure Documentation - Palliative Care Palliative Care/ Comfort Measures: Not Applicable - Core Measures Any of the following diagnoses?: none Exam - Physical Exam Narrative exam: Physical Exam: VITAL SIGNS: Reviewed. GENERAL: The patient appears normally developed, Vital signs as documented. mild distress HEAD: No signs of head trauma. EYES: Pupils are equal. Extraocular motions intact. EARS: Hearing grossly intact. MOUTH: Oropharynx is normal. NECK: No adenopathy, no JVD. CHEST: Chest with clear breath sounds bilaterally. No wheezes, rales, or rhonchi. CARDIAC: Regular rate and rhythm. S1 and S2, without murmurs, gallops, or rubs. VASCULAR: No Edema. Peripheral pulses normal and equal in all extremities. ABDOMEN: grossly tender (improved) No rebound or guarding, and no masses palpated. Bowel Sounds normal. MUSCULOSKELETAL: Good range of motion of all major joints. Extremities without clubbing, cyanosis or edema. NEUROLOGIC EXAM: Alert and oriented x 4. no focal sensory or strength deficits. PSYCHIATRIC: Mood normal. SKIN: detail exam as documented in skin assessment - Constitutional Vitals: Temp Pulse Resp BP Pulse Ox 98.4 F 68 18 159/82 100 10/24/21 04:50 10/24/21 04:50 10/24/21 04:50 10/24/21 04:50 10/24/21 07:38 Plan Follow up with: JOY HART MD [Primary Care Provider] - 3-5 Days Prescriptions: Sucralfate [Carafate] 1 gm PO ACHS 30 Days #1 bottle polyethylene glycoL 3350 [Miralax 3350] 17 gm PO BID PRN 30 Days #1 bottle PRN Reason: Constipation Sennosides Oral Liqd [Senokot] 17.6 mg PO Q12HR PRN 30 Days #1 bottle PRN Reason: Constipation
[2021-10-24] MEDS: INSULIN LISPRO 100 UNIT/ML SUB-Q SCH (08:10)
[2021-10-24] MEDS: FAMOTIDINE 20 MG TAB PO SCH (09:19)
[2021-10-24] MEDS: POLYETHYLENE GLYCOL 3350 17 GM POWDER PO SCH (09:19)
== END 2021-10-24 11:50 | disposition home or self-care (01) | DRG 73 ==
LOC: ED 14:16 → 3A 10-20 01:34
PROVIDERS: ADMIT Hospitalist; ATTEND Internal Medicine
DX: E10.43 Type 1 diabetes mellitus with diabetic autonomic (poly)neuropathy (principal); N17.0 Acute kidney failure with tubular necrosis; K59.00 Constipation, unspecified; K90.0 Celiac disease; E86.9 Volume depletion, unspecified; E10.65 Type 1 diabetes mellitus with hyperglycemia; K31.84 Gastroparesis; Z83.3 Family history of diabetes mellitus
CPT/HCPCS: 36415; 74018; 74176; 80048; 80053; 80076; 82805; 82962; 83036; 83690; 85025; 89050; 94640; 99406; G0378; J3490; Q9967; J1170; J1200; J1815; J2270; J2405; J2765; J7030; J7042